=== PATIENT | female | born 1985 | race Caucasian/White ===

== ENCOUNTER 2018-03-11 07:24 | Emergency (ER) | payer SELFPAY ==
[~2018-03-11] VITALS: Ht 177.8 cm; Wt 158.8 kg
--- NOTE | 2018-03-11 08:02 | ED Lower Extremity ---
General Stated Complaint: RT KNEE PAIN Source: patient, family Exam Limitations: no limitations History of Present Illness Date Seen by Provider: Mar 11, 2018 Time Seen by Provider: 07:34 Initial Comments The patient presents to the ER by private conveyance with her family and a chief complaint she's been having some right knee pain for the past month which progressively getting worse for the past day. She says it started when she was stepping up onto a 13 inch step with her right leg and felt a popping sensation in her knee gave out from underneath her. Since that time she went to her private doctor at [place] who referred her on to orthopedic surgery who did some workup that did not include an MRI or imaging and put her on crutches and send her back to work. She said yesterday was first day going back to work and she could not tolerate standing on her leg for more than 3 hours. She was told by her orthopedic surgeon if the pain got worse she was to come back to him but instead she came here because she says she wants a second opinion. She does not think she's having any swelling on the knee or redness. She has no problems with vision or urinating. No dysuria or discharge. No previous history of surgery or injury to her right knee. She was given ibuprofen to take as she's been doing 800 mg as needed for pain. She took 2 doses over last night. She has not been using them routinely however. She has not been on steroids. When asked if the patient had gone back to see her orthopedic surgeon since she was not tolerating working on the crutches she says she had not. Instead she states that she came here because she wanted a second opinion. Allergies and Home Medications Allergies Coded Allergies: No Known Drug Allergies (Unverified , 03/11/18) Patient Home Medication List Home Medication List Reviewed: Yes Constitutional: No chills, No diaphoresis EENTM: No ear discharge, No ear pain Respiratory: No cough, No short of breath Cardiovascular: No chest pain, No edema Gastrointestinal: No abdominal pain, No constipation, No diarrhea, No nausea Genitourinary: No discharge, No dysuria Musculoskeletal: see HPI; No back pain; joint pain Skin: No pruritus, No rash Past Xjlkyya-Uvynlh-Fpbvuq Hx Patient Social History Alcohol Use: Denies Use Recreational Drug Use: No Smoking Status: Never a Smoker Recent Foreign Travel: No Contact w/Someone Who Travel: No Physical Exam Vital Signs Vital Signs - First Documented 03/11/18 07:32 Temp 98.0 Pulse 91 Resp 18 B/P (MAP) 135/86 (102) Pulse Ox 98 O2 Delivery Room Air O2 Flow Rate 0 Capillary Refill : Height, Weight, BMI Height: ', " Weight: lbs oz, kg Method: ,BMI General Appearance: WD/WN, no apparent distress HEENT: PERRL/EOMI, pharynx normal Neck: non-tender, normal inspection Cardiovascular: normal peripheral pulses, regular rate, rhythm Respiratory: no respiratory distress, no accessory muscle use Gastrointestinal: normal bowel sounds, non tender, soft Hips: bilateral hip non-tender, bilateral hip normal inspection, bilateral hip normal range of motion, bilateral hip no evidence of injury Legs: bilateral leg non-tender, bilateral leg normal inspection, bilateral leg normal range of motion, bilateral leg no evidence of injury Knees: left knee non-tender; bilateral knee normal inspection, bilateral knee normal range of motion; left knee no evidence of injury; right knee bone tenderness (anterior medial tibial plateau tender palpation), right knee pain, right knee other (in see L has pain on examination. Anterior posterior drawer test unremarkable.) Ankles: bilateral ankle non-tender, bilateral ankle normal inspection, bilateral ankle normal range of motion, bilateral ankle no evidence of injury Neurologic/Tendon: normal sensation, normal motor functions, responds to pain Neurologic/Psychiatric: alert, normal mood/affect, oriented x 3 Skin: normal color, warm/dry Progress/Results/Core Measures Results/Orders My Orders Orders - BRIAN GARDINER Ketorolac Injection (Toradol Injection) (03/11/18 08:15) Knee, Right, 3 Views (03/11/18 08:02) Medications Given in ED Current Medications Medications Dose Ordered Sig/Rohit Route Start Time Stop Time Status Last Admin Dose Admin Ketorolac Tromethamine 30 mg ONCE ONCE IM 03/11/18 08:15 03/11/18 08:16 DC 03/11/18 08:10 30 MG Vital Signs/I&O 03/11/18 07:32 Temp 98.0 Pulse 91 Resp 18 B/P (MAP) 135/86 (102) Pulse Ox 98 O2 Delivery Room Air O2 Flow Rate 0 Progress Progress Note : Time: 09:11 Progress Note Patient's knee examination demonstrates some pain so she around the MCL on flexion. We we will get a regular plain film and if we don't see anything worrisome we'll refer her back to her surgeon. She says that she does not want to go back to her surgeon she thought he was very nice however she wants a second opinion. We'll make referral to the surgeon sales operations assistant. We'll get her wrapped up with an Yassine bandage and encourage creams, scheduled NSAIDs with Tylenol for breakthrough pain. Diagnostic Imaging Diagonstic Imaging: Xray Plain Films/CT/US/NM/MRI: knee (Saturday) Comments No acute osseous fracture or abdomen only. The joint spaces are maintained. There is mild osteoarthritic changes noted. VIA [facility], [facility]. [place], [place] NAME: SHIVANI LEOS [facility] REC#: [id number] PT STATUS: REG ER : 1985 PHYSICIAN: BRIAN GARDINER MD ADMIT DATE: 03/11/18/ER Draft Date of Exam:03/11/18 KNEE, RIGHT, 3 VIEWS INDICATION: Right knee injury with pain AP, oblique and lateral views of the right knee are obtained. No fracture or malalignment is identified. There is no abnormal lytic or sclerotic focus. No definite joint fluid is appreciated. IMPRESSION: No evidence of acute osseous abnormality. Dictated on workstation # [id number] Dict: 03/11/18 0847 Trans: 03/11/18 0851 [facility] [id number] Interpreted by: RE OMER MD Electronically signed by: Reviewed: Reviewed by Me Departure Impression Primary Impression: Knee pain Qualified Codes: M25.561 - Pain in right knee Disposition: 01 HOME, SELF-CARE Condition: Stable Departure-Patient Inst. Decision time for Depature: 09:15 Referrals: SELFBIJAN MD (PCP/Family) Primary Care Physician NICOLE SPARKS MD Patient Instructions: Knee Sprain (DC) Add. Discharge Instructions: If you have swelling or pain in your knee can apply ice or use topical creams such as Aspercreme, icy hot etc. Start taking either ibuprofen 800 mg every 8 hours or Naprosyn 2 capsules twice a day on a scheduled basis for the next 2-4 weeks. In addition to that you can use Tylenol 1000 g every 8 hours as needed for breakthrough pain. Call for a follow-up appointment with Drs. Sparks, orthopedics or you may return to the orthopedic surgeon you're familiar with. Copy Copies To 1: SELF,BRIAN ARMSTRONG MD Mar 11, 2018 08:02
[2018-03-11] MEDS ORDERED: KETOROLAC 30 MG/ML VIAL IM ONE (08:15)
--- NOTE | 2018-03-11 08:51 | Diagnostic Imaging Report ---
INDICATION: Right knee injury with pain AP, oblique and lateral views of the right knee are obtained. No fracture or malalignment is identified. There is no abnormal lytic or sclerotic focus. No definite joint fluid is appreciated. IMPRESSION: No evidence of acute osseous abnormality. Dictated by: Dictated on workstation # [id number]
[2018-03-11 09:24] VITALS: BP 135/86
== END 2018-03-11 09:28 | disposition home or self-care (01) ==
LOC: ER 07:29
DX: M25.561 Pain in right knee (principal)
CPT/HCPCS: 73562; 96372

== ENCOUNTER 2022-05-31 07:14 | Emergency (ER) | payer OTHER, BC ==
[~2022-05-31] VITALS: Ht 177 cm; Wt 150.0 kg
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
[2022-05-31] MEDS ORDERED: HYDROmorphone 2 MG/ML VIAL (DILAUDID) IV STA (07:22)
[2022-05-31 07:35] LABS: BASOPHILS % (AUTO) 0 % (0-10); EOSINOPHILS # (AUTO) 0.1 10^3/uL (0.0-0.3); EOSINOPHILS % (AUTO) 1 % (0-10); HEMATOCRIT 42 % (35-52); HEMOGLOBIN 13.1 g/dL (11.5-16.0); LYMPHOCYTES # (AUTO) 2.9 10^3/uL (1.0-4.0); LYMPHOCYTES % (AUTO) 20 % (12-44); MEAN CORPUSCULAR HEMOGLOBIN 26 pg (25-34); MEAN CORPUSCULAR HGB CONC 32 g/dL (32-36); MEAN CORPUSCULAR VOLUME 82 fL (80-99); MEAN PLATELET VOLUME 11.6 fL (9.0-12.2); MONOCYTES # (AUTO) 0.9 10^3/uL (0.0-1.0); MONOCYTES % (AUTO) 6 % (0-12); NEUTROPHILS # (AUTO) 10.3 10^3/uL (1.8-7.8); NEUTROPHILS % (AUTO) 71 % (42-75); PLATELET COUNT 300 10^3/uL (130-400); WHITE BLOOD COUNT 14.5 10^3/uL (4.3-11.0)
[2022-05-31 07:51] LABS: ALKALINE PHOSPHATASE 68 U/L (40-136); BILIRUBIN,TOTAL 0.5 MG/DL (0.1-1.0); BUN/CREATININE RATIO 25; CALCIUM 8.9 MG/DL (8.5-10.1); CARBON DIOXIDE 25 MMOL/L (21-32); CHLORIDE 104 MMOL/L (98-107); CREATININE SERUM 0.55 MG/DL (0.60-1.30); GFR ESTIMATED 121; GLUCOSE 142 MG/DL (70-105); POTASSIUM 4.1 MMOL/L (3.6-5.0); SODIUM 139 MMOL/L (135-145)
[2022-05-31 07:52] LABS: ALANINE AMINOTRANSFERASE 19 U/L (0-55); ALBUMIN 3.9 GM/DL (3.2-4.5); TOTAL PROTEIN 7.3 GM/DL (6.4-8.2)
[2022-05-31 08:03] LABS: BAND NEUTROPHILS 4 %; EOSINOPHILS % (MANUAL) 1 %; LYMPHOCYTES % (MANUAL) 18 %; METAMYELOCYTES % 1 %; MONOCYTES % (MANUAL) 7 %; NEUTROPHILS % (MANUAL) 69 %
[2022-05-31 08:04] LABS: MICROCYTOSIS SLIGHT; PLATELET ESTIMATE NORMAL
[2022-05-31] MEDS ORDERED: HYDROmorphone 2 MG/ML VIAL (DILAUDID) ONE ×2 (08:25→13:15)
[2022-05-31] MEDS ORDERED: HYDROmorphone 2 MG/ML VIAL (DILAUDID) IV ONE ×2 (08:30→13:15)
[2022-05-31] MEDS ORDERED: ONDANSETRON 4 MG/2 ML (SDV) Z0FRAN IVP ONE (08:30)
[2022-05-31] MEDS ORDERED: ONDANSETRON 4 MG/2 ML (SDV) Z0FRAN ONE (08:31)
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
[2022-05-31] MEDS ORDERED: KETOROLAC 30 MG/ML VIAL IVP ONE (09:15)
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
[2022-05-31] MEDS ORDERED: TETANUS,DIPTH,PERTUSS P/F (BOOSTRIX) 0.5 ML VIAL IM ONE (09:30)
[2022-05-31] MEDS ORDERED: IOHEXOL 350 MG/ML 100 ML (OMNIPAQUE 350) VIAL IV ONE (09:45)
[2022-05-31] MEDS ORDERED: HOLD METFORMIN - RECEIVED CONTRAST 20 ML VIAL IV SCH (09:45)
[2022-05-31] MEDS ORDERED: CATHETER FLUSH 10 ML SYR IV PRN (09:45)
[2022-05-31] MEDS ORDERED: NS 100 ML (IVPB) BAG IV ONE (09:45)
[2022-05-31 10:10] VITALS: BP 140/82
[2022-05-31] MEDS ORDERED: LIDOCAINE 1% INJ 10 ML VIAL INJ ONE (10:15)
[2022-05-31] MEDS ORDERED: LIDOCAINE 1% INJ 50 ML (XYLOCAINE) VIAL ONE (10:42)
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
[2022-05-31] MEDS ORDERED: LIDOCAINE UROJET 2% GEL 10 ML PKG TOP ONE (12:45)
[2022-05-31] MEDS ORDERED: NS IV 1000 ML 1,000 ML IV STA (13:57)
== END 2022-05-31 15:36 | disposition short-term general hospital (02) ==
LOC: EDUNIT# 07:14 → ER FS 07:16
DX: S82.891A Other fracture of right lower leg, initial encounter for closed fracture (principal); S01.412A Laceration without foreign body of left cheek and temporomandibular area, initial encounter; R07.81 Pleurodynia; E66.9 Obesity, unspecified; V43.52XA Car driver injured in collision with other type car in traffic accident, initial encounter; Y92.410 Unspecified street and highway as the place of occurrence of the external cause
CPT/HCPCS: 12011; 29515; 36415; 64450; 70450; 70486; 71111; 71260; 72125; 72128; 72131; 73502; 73560; 73610; 73620; 74177; 80053; 85007; 85027; 99285; G0480; 80320; 90715; Q9967

== ENCOUNTER 2023-06-28 06:04 | Emergency (ER) | payer BC ==
[2023-06-28] MEDS ORDERED: PRED5DRO17 (06:34)
[2023-06-28] MEDS ORDERED: SEMA2PEN (06:34)
[2023-06-28] MEDS ORDERED: METH4TAB10 (06:34)
[2023-06-28] MEDS ORDERED: LEVO100T7 (06:34)
[2023-06-28] MEDS ORDERED: ROSU20TA73 (06:34)
[2023-06-28] MEDS ORDERED: LISI5TAB20 (06:34)
[2023-06-28] MEDS ORDERED: CEPH500C PO (06:38)
--- NOTE | 2023-06-28 06:39 | ED Integumentary General ---
General Chief Complaint: Skin/Wound Problems Stated Complaint: SPIDER BITE FOR A WEEK L SIDE BREAST Nursing Triage Note: Pt presents per POV ambulating to ED 2 reporting a possible "spider bite" for 2 weeks worsening in pain and size. Approximately 2 weeks ago a noted pimple like area below L axilla that 1 week ago was attempted to pop to drain. Presently a painful darkened black area noted with surrounding erythema of skin tissue. Source: patient History of Present Illness Date Seen by Provider: Jun 28, 2023 Time Seen by Provider: 06:15 Initial Comments 38-year-old female presents to the ER complaining of an infection underneath her left arm/breast region. Present for 2 weeks. Started out as a pimple and 1 week ago her tried to pop this. Now there is a black center with surrounding erythema and a central area that is slightly firm to touch. No fever or chills. No drainage. Pain is mild to moderate and worse with palpation. Allergies and Home Medications Allergies Coded Allergies: No Known Drug Allergies (Unverified , 03/11/18) Patient Home Medication List Home Medication List Reviewed: Yes Levothyroxine Sodium (Levothyroxine Sodium) 100 Mcg Tablet, (Reported) Entered as Reported by: ZAID ZIMMERMAN on 06/28/23633 Last Action: New Order Lisinopril (Lisinopril) 5 Mg Tablet, (Reported) Entered as Reported by: ZAID ZIMMERMAN on 06/28/23633 Last Action: New Order Methylprednisolone (Methylprednisolone Dose Pack) 4 Mg Tab.ds.pk, (Reported) Entered as Reported by: ZAID ZIMMERMAN on 06/28/23633 Last Action: New Order Prednisolone Acetate (Prednisolone Acetate) 1 % Drops.susp, (Reported) Entered as Reported by: ZAID ZIMMERMAN on 06/28/23633 Last Action: New Order Rosuvastatin Calcium (Rosuvastatin Calcium) 20 Mg Tablet, (Reported) Entered as Reported by: ZAID ZIMMERMAN on 06/28/23633 Last Action: New Order Semaglutide (Ozempic) 2 Mg/0.75 Ml (8 Mg/3 Ml) Pen.injctr, (Reported) Entered as Reported by: ZAID ZIMMERMAN on 06/28/23633 Last Action: New Order Review of Systems Review of Systems Constitutional: see HPI (All other systems negative except as documented in HPI.) Past [id number] Hx Patient Social History Tobacco Use?: No Substance use?: No Alcohol Use?: No Immunizations Up To Date Influenza Vaccine Up-to-Date: No; Not Current First/Initial COVID19 Vaccinat: Unvaccinated Past Medical History Surgery/Hospitalization HX: DIABETIC HTN THYROID Surgeries: Yes Section Respiratory: No Cardiac: No Neurological: No Sexually Transmitted Disease: No HIV/AIDS: No Genitourinary: No Gastrointestinal: No Musculoskeletal: No Endocrine: No HEENT: No Cancer: No Psychosocial: No Integumentary: No Blood Disorders: No Adverse Reaction/Blood Tranf: No Physical Exam Vital Signs Vital Signs - First Documented 06/28/23 06:08 Temp 35.8 Pulse 65 Resp 18 B/P (MAP) 116/68 (84) Pulse Ox 98 O2 Delivery Room Air Capillary Refill : Less Than 3 Seconds General Appearance: WD/WN, no apparent distress HEENT: PERRL/EOMI, normal ENT inspection, TMs normal, pharynx normal Neck: non-tender, full range of motion, supple, normal inspection Cardiovascular: normal peripheral pulses, regular rate, rhythm, no edema, no gallop, no JVD, no murmur Respiratory: chest non-tender, lungs clear, normal breath sounds, no respiratory distress, no accessory muscle use Gastrointestinal: normal bowel sounds, non tender, soft, no organomegaly, no pulsatile mass Back: normal inspection, no CVA tenderness, no vertebral tenderness Extremities: normal range of motion, non-tender, normal inspection, no pedal edema, no calf tenderness, normal capillary refill, pelvis stable Neurologic/Psychiatric: doctor of naprapathy II-XII nml as tested, no motor/sensory deficits, alert, normal mood/affect, oriented x 3, EOM palsy, depressed affect Skin: other (Normal except for a lesion that is adjacent to the left breast in the mid axillary line that has a central black area approximately 1 to 1.5 cm in diameter. There is surrounding erythema that extends 1 to 2 cm around the central area. There is some induration noted centrally that is approximately 1 to 2 cm in diameter no fluctuance noted.) Lymphatic: no adenopathy Procedures/Interventions Suture Size: 5-0 Progress/Results/Core Measures Results/Orders My Orders Orders - GIGI LAGUNAS DO Cephalexin Capsule (Cephalexin Capsule) (06/28/23 06:45) Vital Signs/I&O 06/28/23 06:08 Temp 35.8 Pulse 65 Resp 18 B/P (MAP) 116/68 (84) Pulse Ox 98 O2 Delivery Room Air Blood Pressure Mean: 84 Progress Progress Note : Time: 06:36 Progress Note Patient seen for skin infection/wound. Examination and history reveal abscess versus spider bite versus localized cellulitis. Will start Keflex 3 times daily for 10 days. No drainage needed at this time as I feel no fluctuance. Departure Impression Primary Impression: Abscess Disposition: 01 HOME, SELF-CARE Condition: Stable Departure-Patient Inst. Decision time for Depature: 06:37 Referrals: SELFBIJAN MD (PCP/Family) Primary Care Physician Please follow-up with your doctor in the next 2 to 4 days if your symptoms seem to be worsening and not improving Patient Instructions: Skin Abscess Scripts Cephalexin (Cephalexin) 500 Mg Capsule 500 MG PO Q8H for 10 Days, #30 CAP 0 Refills Prov: GIGI LAGUNAS DO 06/28/23 GIGI LAGUNAS DO Jun 28, 2023 06:39
[2023-06-28 06:40] VITALS: BP 116/68
[2023-06-28] MEDS ORDERED: CEPHALEXIN 250 MG CAPSULE PO SCH (06:45)
== END 2023-06-28 06:40 | disposition home or self-care (01) ==
LOC: EDUNIT# 06:04 → ER FS 06:05
DX: N61.1 Abscess of the breast and nipple (principal)
CPT/HCPCS: 99283